=== PATIENT | female | born 1935 | race Caucasian/White ===

== ENCOUNTER 2017-10-01 14:01 | Emergency (ER) | payer MEDICARE, BC, SELFPAY ==
[2017-10-01 14:19] VITALS: BP 180/83; PULSE 68; RESP 16; TEMP 36.4; O2SAT 98; BMI 32.3
--- NOTE | 2017-10-01 15:06 | ED.DIZZY ---
HPI - Dizziness General Chief Complaint: Dizziness Stated Complaint: LIGHT HEADED Time Seen by Provider: 10/01/17 15:06 Source: patient Mode of arrival: ambulatory Limitations: no limitations History of Present Illness HPI Narrative: Patient is an 82-year-old female here for evaluation symptoms that she describes as a lightheadedness. Upon further evaluation she does describe a spinning sensation and feels like that she is falling to the left. She states that several days ago she woke up in the morning and had the symptoms. She states that the symptoms lasted approximately an hour and then completely resolved. Did not have any other symptoms until a couple days ago with the same thing happened again after she woke up. Again lasting about an hour. She states that today symptoms again occurred however has improved but has continued throughout today. She denies any other symptoms. She states her blood pressure is more elevated for her than normal. Denies any headache or vision changes or ringing in her ears. Related Data Home Medications Medication Instructions Recorded Confirmed Calcium 1 tab PO QPM 10/01/17 10/01/17 atorvastatin 40 mg PO QPM 10/01/17 10/01/17 cholecalciferol (vitamin D3) 2,000 unit PO QPM 10/01/17 10/01/17 [Vitamin D3] lisinopril 40 mg PO QPM 10/01/17 10/01/17 Previous Rx's Medication Instructions Recorded meclizine 25 mg PO BID-TID PRN #14 tab 10/01/17 Review of Systems Constitutional Denies fatigue, Denies fever(s), Denies frequent falls and Denies headache(s) Eyes Denies blurry vision, Denies change in vision, Denies diplopia and Denies loss of vision ENT Ears, Nose, Mouth, and Throat: Reports vertigo, Reports dizziness, Denies facial pain, Denies headache(s), Denies hearing loss, Denies sinus pressure and Denies sore throat Cardiovascular Denies chest pain, Denies syncope, Denies edema, Denies palpitations and Denies dyspnea Respiratory Denies cough and Denies dyspnea Gastrointestinal Gastrointestinal: Denies constipation, Denies diarrhea, Denies nausea and Denies vomiting Genitourinary Denies dysuria Musculoskeletal Denies myalgias and Denies arthralgias Integumentary/Breasts Denies lesions and Denies rash Neurologic Denies confusion, Reports vertigo, Reports dizziness, Denies syncope, Denies frequent falls, Denies headache(s), Denies focal weakness and Denies loss of vision Psychiatric Denies confusion Endocrine Denies fatigue and Denies palpitations [facility] Social History Smoking Status: Never smoker Exam Initial Vital Signs Initial Vital Signs: Vital Signs Temperature 97.5 F L 10/01/17 14:19 Pulse Rate 68 10/01/17 14:19 Respiratory Rate 16 10/01/17 14:19 Blood Pressure 180/83 H 10/01/17 14:19 Pulse Oximetry 98 10/01/17 14:19 Const General: cooperative, healthy appearing, comfortable, well developed, well groomed, No acute distress and No anxious Orientation: alert, awake and oriented x3 HENMT Head: normal to inspection, normocephalic and atraumatic Ears: hearing grossly normal bilaterally and TM's normal bilaterally Face and sinus: normal facial exam Mouth: oral mucosae normal Resp Effort & Inspection: normal respiratory effort Auscultation: clear to auscultation bilaterally Cardio Rate: regular rate Rhythm: regular rhythm Pulses: radial pulses present GI Inspection: non-distended Palpation: soft Skin Lesions: no lesions Rashes: no rashes Neuro General: alert, awake and oriented x3 Cranial Nerves: CN's II-XI intact bilaterally Cognition: normal cognition Speech: speech normal Gait: normal gait Motor: muscle tone normal throughout Sensory Exam: no sensory deficits noted Extrem General: normal to inspection and capillary refill normal Psych Appearance: grossly normal and well kempt Course Orders Ordered: ED Orders 10/01/17 14:33 EKG-12 Lead Stat 10/01/17 14:55 Basic Metabolic Panel Stat Complete Blood Count AUTO DIFF Stat 10/01/17 15:07 CT angio head and neck Stat Discontinued Medications Meclizine HCl (Antivert) 25 mg PO NOW ONE Stop: 10/01/17 15:08 Last Admin: 10/01/17 15:36 Dose: 25 mg Vital Signs - 8 hr 10/01/17 14:19 10/01/17 15:43 10/01/17 16:52 Temperature 97.5 F L Pulse Rate 68 66 66 Respiratory Rate 16 17 15 Blood Pressure 180/83 H Blood Pressure [Right Arm] 173/75 H 178/98 H Pulse Oximetry 98 97 98 10/01/17 17:31 Temperature Pulse Rate Respiratory Rate Blood Pressure 169/90 H Blood Pressure [Right Arm] Pulse Oximetry MDM - Dizziness Lab Data Attestation: I reviewed the patient's lab results. Result diagrams: 10/01/17 14:55 10/01/17 14:55 Lab Results 10/01/17 10/01/17 Range/Units 14:55 14:55 WBC 7.2 (4.5-11.0) X10^3/uL RBC 4.64 (4.0-5.2) X10^6/uL Hgb 14.3 (12.0-16.0) g/dL Hct 42.8 (36-46) % MCV 92.2 (80-100) fL MCH 30.8 (26-34) PG MCHC 33.4 (30-36) % RDW 13.1 (11.6-14.8) % Plt Count 257 (150-400) X10^3/uL Neut % (Auto) 66.3 (50-75) % Lymph % (Auto) 20.7 L (25-40) % [place] % (Auto) 7.5 (3-14) % Eos % (Auto) 4.8 H (2-4) % Baso % (Auto) 0.7 (0-2) % Neut # (Auto) 4700 (0008-6227) /uL Sodium 140 (137-145) mmol/L Potassium 4.1 (3.4-5.1) mmol/L Chloride 100 (98-107) mmol/L Carbon Dioxide 32 (22-32) mmol/L BUN 12 (7-17) mg/dL Creatinine 0.70 (0.52-1.04) mg/dL Estimated GFR > 60.0 (>60) mL/min BUN/Creatinine Ratio 17.1 (6-22) Glucose 98 (80-110) mg/dL Calcium 9.7 (8.4-10.2) mg/dL Imaging Data CT scan - head: Radiologist's impression: PROCEDURE: CT ANGIO HEAD AND NECK INDICATIONS: Vertigo TECHNIQUE: Pre-contrast 4.5 mm thick sections acquired from the foramen magnum to the vertex. After the administration of intravenous contrast, 1 mm thick sections acquired from the aortic arch through the [place] of [place]. Post-contrast 4.5 mm thick sections then re-acquired from the foramen magnum to the vertex. 3-dimensional rvrylft-atexwopiz-jscdpieork (MIP) and/or volume rendering reformats were acquired of the central intracranial vasculature and neck separately. COMPARISON: None. FINDINGS: Image quality: Excellent. BRAIN: CSF spaces: Ventricles are normal in size and shape. Basal cisterns are patent. No extra-axial fluid collections. Brain: No midline shift. No intracranial bleeds or masses. Sanchez-white matter interface appears intact. Skull and face: Calvarium and facial bones appear intact, without suspicious lesions. Orbits appear normal. Sinuses: Sinuses and mastoids are clear. HEAD CT ANGIOGRAPHY: Anterior circulation: Intracranial internal carotid arteries are normal in size and flow. There is an absent right A1 segment, with a correspondingly robust left A1 segment. The flow within the paired anterior cerebral arteries is otherwise normal and symmetric. The flow within the middle cerebral arteries is normal and symmetric. The anterior communicating artery is seen. No aneurysms are seen. Posterior circulation: Visualized portions of the vertebral arteries demonstrate normal caliber. The basilar artery appears normal. Flow within the posterior cerebral arteries is normal and symmetric. No aneurysms are seen. NECK CT ANGIOGRAPHY: Carotid system: The great vessels demonstrate a conventional anatomy as they arise from the aortic arch. The origins of the common carotid arteries appear patent. Atherosclerotic calcification can be seen involving the aortic arch. The common carotid arteries demonstrate normal caliber and courses. The bifurcation regions demonstrate atherosclerotic irregularity and calcification, left worse than right. The internal carotid arteries demonstrate normal calibers and courses. Posterior circulation: The origins of the vertebral arteries both appear widely patent. The more superior extracranial portions of both vertebral arteries also demonstrate normal courses and calibers. The left vertebral artery is dominant to the right. The right vertebral artery largely terminates in the right posterior inferior cerebellar artery. Soft tissues: Visualized neck soft tissues demonstrate no suspicious abnormalities. Bones: No suspicious bony lesions. Visualized cervical spine appears normally aligned. Age-appropriate bony degenerative changes are seen. IMPRESSION: No acute intracranial abnormality can be seen. No significant intracranial arterial abnormality is seen, although a [place] anomaly is incidentally noted. No hemodynamically significant stenosis can be seen of the neck arteries. Any quantitative measurements of stenosis were performed using NASCET criteria. Dictated by: Andi Mtz M.D. on 10/01/2017 at 15:27 Approved by: Jose Miguel TerryD. on 10/01/2017 at 15:33 ECG Data Attestation: I personally reviewed and interpreted this ECG as follows: Prior ECG tracings: not available for review Interpretation: Sinus rhythm Ventricular rate is 69 Normal axis Normal intervals Normal QRS No ST T wave changes MDM Narrative Medical decision making narrative: Patient reported almost complete resolution of her symptoms during her stay here in the ER and after the meclizine. CT of the head neck did not show any acute abnormalities. EKG was unremarkable. Labs are unremarkable. Patient had a normal neurologic exam here in the ER. Given her history and physical exam and the fact that it is a spinning sensation that causes her to lean to the left I have high suspicion for peripheral vertigo. Given the normal neurologic exam here in the ER will hold on further workup to include MRI eyes now. Will send home with a prescription for meclizine. Patient was given return precautions. Patient was instructed to contact her primary care doctor to schedule an appointment for when she returns home to discuss the indications for MRI for symptoms do not improve. She expressed understanding and agreement with plan. Discharge Plan Departure Patient Disposition: Home, Self-Care Clinical Impression: Vertigo, Hypertension Discharge Date/Time: 10/01/17 17:32 Interventions: ED Discharge Assessment Last Done: 10/01/17 17:31 Instructions: DI for Vertigo Activity Restrictions/Additional Instructions: Recommend that you contact your primary care doctor for follow-up when you return home. Take the medication like we discussed. Return to the emergency department for any new or worsening symptoms Prescriptions: New meclizine 25 mg tablet 25 mg PO BID-TID PRN (Reason: motion sickness) Qty: 14 RF: 0 No Action atorvastatin 40 mg tablet 40 mg PO QPM RF: 0 lisinopril 40 mg tablet 40 mg PO QPM RF: 0 cholecalciferol (vitamin D3) [Vitamin D3] 2,000 unit Capsule 2,000 unit PO QPM RF: 0 Calcium 1 tab PO QPM RF: 0
[2017-10-01 15:16] LABS: Add Manual Diff / Slide Review NO; Basophils Percent Auto 0.7 % (0-2); Eosinophils Percent Auto 4.8 % (2-4); Hematocrit 42.8 % (36-46); Hemoglobin 14.3 g/dL (12.0-16.0); Lymphocytes Percent Auto 20.7 % (25-40); Mean Corpuscular HGB Conc 33.4 % (30-36); Mean Corpuscular Hemoglobin 30.8 PG (26-34); Mean Corpuscular Volume 92.2 fL (80-100); Monocytes Percent Auto 7.5 % (3-14); Neutrophils Absolute Auto 4700 /uL (3000-5900); Neutrophils Percent Auto 66.3 % (50-75); Platelet Count 257 X10^3/uL (150-400); Red Blood Cell Count 4.64 X10^6/uL (4.0-5.2); Red Cell Distribution Width 13.1 % (11.6-14.8); White Blood Cell Count 7.2 X10^3/uL (4.5-11.0)
[2017-10-01 15:20] LABS: BUN Creatinine Ratio 17.1 (6-22); Blood Urea Nitrogen 12 mg/dL (7-17); Calcium 9.7 mg/dL (8.4-10.2); Carbon Dioxide 32 mmol/L (22-32); Chloride 100 mmol/L (98-107); Estimated Glomerular Filt Rate > 60.0 mL/min (>60); Glucose 98 mg/dL (80-110); HEMOLYSIS < 15 (0-50); Potassium 4.1 mmol/L (3.4-5.1); Sodium 140 mmol/L (137-145)
[2017-10-01] MEDS: MECLIZINE HCL 12.5 MG TABLET 25 MG PO (15:36)
[2017-10-01 15:43] VITALS: BP 173/75; PULSE 66; RESP 17; O2SAT 97
[2017-10-01 16:52] VITALS: BP 178/98; PULSE 66; RESP 15; O2SAT 98
[2017-10-01 17:31] VITALS: BP 169/90
== END 2017-10-01 17:32 | disposition home or self-care (01) ==
PROVIDERS: Emergency Provider Emergency Medicine
DX: I10 Essential (primary) hypertension (principal); R42 Dizziness and giddiness
CPT/HCPCS: 36591; 70496; 70498; 80048; 85025; 93005; 99283; 99285; Q9967